=== PATIENT | male | born 1980 | race Caucasian/White ===

== ENCOUNTER → 2025-06-14 14:56 | Outpatient (REF) | payer SELFPAY | LOC: HWRAD 14:56 | PROVIDERS: ATTENDING PHYSICIAN Internal Medicine Cardiovascular Disease; FAMILY PHYSICIAN Family Medicine | DX: R07.89 Other chest pain (principal); R94.31 Abnormal electrocardiogram [ECG] [EKG] | CPT/HCPCS: 75571 ==